=== PATIENT | female | born 1940 ===

== ENCOUNTER 2017-05-26 07:36 | Day surgery (SDC) | payer MEDICARE ==
[2017-05-22 13:05] VITALS: BMI 30.9
--- NOTE | 2017-05-24 04:34 | HP ---
REASON FOR ADMISSION: Left heart cath and possible angioplasty, and unstable angina. BRIEF CLINICAL HISTORY: This is a 76-year-old female with a past medical history significant for hypertension, complaining of dyspnea on exertion and patient feels a knot in the neck while she walks associated with neck pain and shortness of breath, started burping, and after that burping, stopped walking, the patient feels better. Denies any chest pain. PAST MEDICAL HISTORY: Significant for obesity and hypertension. SOCIAL HISTORY: Denies any history of alcohol abuse. Recent cardiac workup as follows; the patient had a stress test dated 02/10/2017. There was a Lexiscan that showed normal myocardial perfusion study. Ejection fraction 81%. The patient had echocardiography done on 07/27/2016 that shows normal LV size, hinhzckt-bx-uiquvm concentric LVH, normal LV function, ejection fraction is within normal limits. Diastolic dysfunction is grade 1. Moderately calcified aortic valve, moderate valvular aortic stenosis, small loculated anterior pericardial effusion noted. CURRENT MEDICATIONS: The patient is taking amlodipine 10 mg a day, Norvasc 1 tablet, hydrochlorothiazide 1 tablet, multivitamin 1 tablet, and Symbicort inhaler. REVIEW OF SYSTEMS: As per HPI. ALLERGIES: NO KNOWN DRUG ALLERGIES. PHYSICAL EXAMINATION: GENERAL: Height of the patient is 5 feet 3 inches, weight of the patient is 175, body mass index is 31.0 kg/m2. HEENT: PERRLA, extraocular muscles intact. NECK: Supple. No carotid bruit. No thyromegaly. CHEST: Clear to auscultation. HEART: S1 and S2 regular. Loud systolic murmur noted. ABDOMEN: Soft. EXTREMITIES: Clubbing and cyanosis negative. IMPRESSION: Unstable angina, hypertension, hyperlipidemia, obesity, and moderate aortic stenosis. RECOMMENDATIONS: We will load with Plavix and Aspirin. Further recommendation after cardiac catheterization; if significant gradient noted, then we can do the right heart catheterization also. We will follow with you. Thank you Dr. Villatoro for the opportunity in taking care of Diamond Gusman. Thank you for providing the opportunity in taking care of patient, Diamond Gusman. Kesha Cespedes MD
[2017-05-26 08:32] LABS: HEMATOCRIT 39.3 % (36.0-48.0); LYMPH # 1.3 (1.2-3.4); LYMPH % 11.5 % (22.0-35.0); MEAN CELL VOLUME 88.5 fl (80.0-105.0); MEAN CORPUSCULAR HEMOGLOBIN 29.7 pg (25.0-35.0); MEAN CORPUSCULAR HGB CONC 33.6 g/dl (31.0-37.0); MEAN PLATELET VOLUME 9.3 fl (7.0-11.0); MONO # 0.8 (0.1-0.6); MONO % 7.5 % (1.0-6.0); RED CELL DISTRIBUTION WIDTH 14.1 % (11.5-14.5); WHITE BLOOD COUNT 11.1 10^3/ul (4.5-11.0)
[2017-05-26 08:43] LABS: INR 0.96 (0.93-1.08); PARTIAL THROMBOPLASTIN TIME 24.7 Seconds (23.7-30.8)
[2017-05-26 09:45] LABS: BLOOD UREA NITROGEN 23 mg/dL (7-21); CALCIUM 8.9 mg/dL (8.4-10.5); CARBON DIOXIDE 28 mmol/L (21-33); CHLORIDE 102 mmol/L (98-107); CHOLESTEROL 118 mg/dL (130-200); GFR AFRICAN-AMERICAN > 60; GLUCOSE,RANDOM 114 mg/dL (70-110); POTASSIUM 3.5 mmol/L (3.6-5.0); SODIUM 141 mmol/L (132-148)
[2017-05-26] MEDS ORDERED: Lidocaine 2% Inj (20ml) ONE (11:19)
[2017-05-26] MEDS ORDERED: Nitroglycerin 50mg in D5W 50 MG/250 ML BOTTLE IV ONE (11:20)
[2017-05-26] MEDS ORDERED: Midazolam 2 MG/2 ML VIAL ONE (11:52)
[2017-05-26] MEDS ORDERED: Bacitracin 500 Units/gm Oint Foilpak UD TOP ONE ×2 (12:35→12:36)
[2017-05-26] MEDS ORDERED: Sodium Chloride 0.9% 1,000 ML IV SCH (12:45)
[2017-05-26 12:52] VITALS: TEMP 97.7
[2017-05-26 14:27] VITALS: RESP 18
[2017-05-26 14:28] VITALS: O2SAT 96
[2017-05-26 14:30] VITALS: BP 135/79; PULSE 69
[2017-05-26] MEDS ORDERED: Bacitracin 500 Units/gm Oint Foilpak UD ONE (14:37)
--- NOTE | 2017-05-26 15:35 | CARD ---
APPROVED REPORT EKG Measurement Heart [id number] NM [id number] [id number] <Conclusion> Normal sinus rhythm Possible Left atrial enlargement Borderline ECG
--- NOTE | 2017-05-26 16:36 | CARD ---
APPROVED REPORT Procedure(s) performed: Left Heart Catheterization HISTORY The patient is a 76 year-old female with a history of : most recent EF: 81%. (EF Method: RADIONUCLIDE), chronic lung disease, hypertension , dyslipidemia , Mild to Moderate by Echo,was C/o chest pain, throat pain and ball in throat on walking 1-2 block associated with SOB, Hx of stress test ( Lexiscan) 3-4 months ago and was negative for ischemia.. INDICATION The indication(s) include : unstable angina , dyspnea, valvular heart disease. CASE TECHNIQUE The patient was brought electively to the Cardiac Catheterization Laboratory in a fasting state and was prepped and draped in a sterile manner. The left wrist was infiltrated with 2% Lidocaine subcutaneous anesthesia. A 6 Fr Glidesheath (Radial) sheath was inserted into the left radial artery without difficulty. Coronary angiography was performed using coronary diagnostic catheters. The left coronary system was accessed and visualized with a Diagnostic ,5 Fr JL 4 catheter. The right coronary system was accessed and visualized with a Diagnostic ,5 Fr JR 4 catheter. The left ventricle was accessed and visualized with a 5 Fr Pigtail 145 (Angled) catheter. Left ventricular/Aortic Valve gradient assessed on pullback. Left ventriculogram was performed in MCKEON projection. Closure device was deployed with a Fr TR Band (Large) without any complications. The patient tolerated the procedure well and there were no complications associated with the procedure. Vessel Analysis The patient's coronary anatomy is right dominant. The left main coronary artery is a large size vessel with diffuse calcification noted throughout this vessel and without significant stenosis. There is a 10-20% stenosis in the distal segment. The left main bifurcates to the left anterior descending and circumflex. The left anterior descending artery is a medium size vessel with diffuse calcification noted throughout this vessel and without significant stenosis. There is a 55% stenosis in the very distal segment , diffusely diseased but no focal flow limiting stenosis.. The first diagonal branch is a medium size vessel with diffuse calcification noted throughout this vessel and without significant stenosis. The circumflex artery is a large size vessel with diffuse calcification noted throughout this vessel and without significant stenosis. The first obtuse marginal branch is a large size vessel with diffuse calcification noted throughout this vessel and without significant stenosis. The right coronary artery is a large size vessel with diffuse calcification noted throughout this vessel and without significant stenosis. The right posterior descending artery is a large size vessel with intimal irregularities and without significant stenosis. fistulous communication noted from PLv Br of RCA to LV cavity ( hemodynamically not significant). Left Ventricle The left ventricle is normal in size with normal contractility. There was no cardiomyopathy. The left ventricular ejection fraction is estimated to be 60-65%. The left ventricular end diastolic pressure is 15 mmHg. at the most 10-12 mm gradient noted across aortic valve ( C/W mild ) Conclusion Non Obstructive CAD, limited to very distal LAD 55% diffusely diseased, non focal non flow limiting stenosis. Preserved LV Fx. Ef-60-65%, EDP15 mmof Hg with respiratory variation. Mild peak to peak on Pull back 10-12 mm gradient across aortic Valve. Coronary Fistula Noted communicating PLV Br of RCA to LV cavity. Recommendations Aggressive Medical TherapyCardiac Risk Reduction Program Weight Loss Reduction Program Cc; Dr. Villatoro
== END 2017-05-26 16:00 | disposition home or self-care (01) ==
LOC: CATH 07:36
PROVIDERS: ATTEND Internal Medicine Cardiovascular Disease
DX: I25.110 Atherosclerotic heart disease of native coronary artery with unstable angina pectoris (principal); I10 Essential (primary) hypertension; E78.5 Hyperlipidemia, unspecified; R06.09 Other forms of dyspnea; M54.2 Cervicalgia; E66.9 Obesity, unspecified; Z68.31 Body mass index [BMI] 31.0-31.9, adult; I35.0 Nonrheumatic aortic (valve) stenosis; I31.3 Pericardial effusion (noninflammatory); J44.9 Chronic obstructive pulmonary disease, unspecified; R06.00 Dyspnea, unspecified; I25.41 Coronary artery aneurysm
CPT/HCPCS: 36415; 80048; 80061; 85025; 85610; 85730; 86850; 86900; 93005; 93458; 99152; C1769; C1887 ×2; J1644 ×2; J2250; J3010; J7040 ×2; Q9967

== ENCOUNTER 2017-06-12 19:05 | Observation (INO) | payer MEDICARE ==
[2017-06-12] MEDS ORDERED: Sodium Chloride 0.9% 500 ML IV STA (19:28)
--- NOTE | 2017-06-12 19:30 | ED PDOC ---
Arrival/HPI - General Time Seen by Provider: 06/12/17 19:08 - History of Present Illness Narrative History of Present Illness (Text): 06/12/17 19:29 76 yo female, hx of cad, gastric sleeve. presnts wtih chest pain/dysphgia/ throat pain x 1 week. pt staets she has symptoms over last week. no fevers, mild chest heaviness. pt feels "something stuck in her throat" recent cath with distal lad disease, treated medically. no abdominal pain, no diarrhea. Past Medical History - Provider Review Nursing Documentation Reviewed: Yes - Infectious Disease Hx of Infectious Diseases: None - Tetanus Immunization Tetanus Immunization: Unknown - Cardiac Hx Pacemaker: No - Neurological Hx Paralysis: No - Hematological/Oncological Hx Blood Transfusions: No - Musculoskeletal/Rheumatological Hx Musculoskeletal Disorders: Yes - Gastrointestinal Hx Gastrointestinal Disorders: (dumping syndrome) - Psychiatric Hx Substance Use: No - Surgical History Hx Appendectomy: Yes Hx Cholecystectomy: Yes Hx Hysterectomy: Yes Other/Comment: right breast bx benign - Anesthesia Hx Anesthesia Reactions: No Hx Malignant Hyperthermia: No - Suicidal Assessment Feels Threatened In Home Enviroment: No Family/Social History - Physician Review Nursing Documentation Reviewed: Yes Family/Social History: Unknown Family HX Smoking Status: Former Smoker Hx Alcohol Use: No Hx Substance Use: No Hx Substance Use Treatment: No Allergies/Home Meds Allergies/Adverse Reactions: Allergies NSAIDS (Non-Steroidal Anti-Inflamma Allergy (Verified 06/12/17 19:21) NAUSEA Home Medications: Home Meds Medication Instructions Recorded Confirmed Valsartan/Hydrochlorothiazide 1 tab PO DAILY 02/10/17 06/12/17 [Valsartan-Hctz 160-12.5 mg Tab] Budesonide/Formoterol Fumarate 1 aer IH PRN PRN 05/22/17 06/12/17 [Symbicort 160-4.5 Mcg Inhaler] Multivit-Min/FA/Lycopen/Lutein 1 tab PO DAILY 05/22/17 06/12/17 [Centrum Silver Tablet] Colchicine [Colcrys] 1 tab PO DAILY 05/26/17 06/12/17 Review of Systems - Review of Systems Constitutional: Normal Eyes: Normal ENT: Sore Throat Respiratory: Normal Cardiovascular: Chest Pain Gastrointestinal: Normal Genitourinary Female: Normal Musculoskeletal: Normal Skin: Normal Neurological: Normal Endocrine: Normal Hemo/Lymphatic: Normal Psychiatric: Normal Physical Exam Vital Signs Temp Pulse Resp BP Pulse Ox 06/12/17 21:41 97.8 F 90 22 141/78 96 06/12/17 19:10 97.7 F 101 H 20 141/76 97 Temperature: Afebrile Blood Pressure: Normal Pulse: Tachycardic (mild) Respiratory Rate: Normal Appearance: Positive for: Well-Appearing, Non-Toxic, Comfortable Pain Distress: None Mental Status: Positive for: Alert and Oriented X 3 - Systems Exam Head: Present: Atraumatic, Normocephalic Pupils: Present: PERRL Extroacular Muscles: Present: EOMI Conjunctiva: Present: Normal Mouth: Present: Moist Mucous Membranes Neck: Present: Normal Range of Motion Respiratory/Chest: Present: Clear to Auscultation, Good Air Exchange. No: Respiratory Distress, Accessory Muscle Use Cardiovascular: Present: Regular Rate and Rhythm, Normal S1, S2. No: Murmurs Abdomen: Present: Normal Bowel Sounds. No: Tenderness, Distention, Peritoneal Signs, Rebound, Guarding Back: Present: Normal Inspection Upper Extremity: Present: Normal Inspection. No: Cyanosis, Edema Lower Extremity: Present: Normal Inspection. No: Edema Neurological: Present: GCS=15, CN II-XII Intact, Speech Normal Skin: Present: Warm, Dry, Normal Color. No: Rashes Psychiatric: Present: Alert, Oriented x 3, Normal Insight, Normal Concentration Medical Decision Making ED Course and Treatment: 06/13/17 01:50 atypical chest pain/dsyphatia. r/o cardiac etiology, gastritis, gerd. labs imaging pending case discussed with dr felix singletary. will obs for gi and cards eval. - Lab Interpretations Lab Results: 06/12/17 19:30 06/12/17 19:30 Lab Results 06/12/17 20:15: Urine Color Yellow, Urine Appearance Sl cloudy, Urine pH 6.5, Ur Specific [place] <= 1.005, Urine Protein Negative, Urine Glucose (UA) Negative, Urine Ketones Negative, Urine Blood Small H, Urine Nitrate Negative, Urine Bilirubin Negative, Urine Urobilinogen 0.2, Ur Leukocyte Esterase Negative , Urine RBC 0 - 2, Urine WBC Negative 06/12/17 19:30: Sodium 138, Potassium 3.5 L, Chloride 102, Carbon Dioxide 26, Anion Gap 14, BUN 16, Creatinine 1.0, Est GFR ( Amer) > 60, Est GFR (Non- Af Amer) 54, Random Glucose 116 H, Calcium 8.8, Magnesium 1.8, Total Bilirubin 0.4, AST 30, ALT 26, Alkaline Phosphatase 105, Lactate Dehydrogenase 673, Total Creatine Kinase 123, Troponin I < 0.01, Total Protein 6.8, Albumin 3.8, Globulin 3.0, Albumin/Globulin Ratio 1.3, Lipase 82 06/12/17 19:30: PT 10.1, INR 0.94, APTT 27.5 06/12/17 19:30: WBC 4.6 D, RBC 3.97, Hgb 12.0, Hct 35.7 L, MCV 89.9, MCH 30.2, MCHC 33.6, RDW 14.4, Plt Count 238, MPV 8.9, Gran % 44.7 L, Lymph % (Auto) 37.6 H, [place] % (Auto) 12.0 H, Eos % (Auto) 5.5 H, Baso % (Auto) 0.2, Gran # 2.04, Lymph # 1.7, [place] # 0.6, Eos # 0.3, Baso # 0.01 - RAD Interpretation Radiology Orders: 06/12/17 19:27 CHEST PORTABLE [RAD] Stat 06/12/17 19:28 NECK & CHEST W/O CONTRAST [CT] Stat - Medication Orders Current Medication Orders: Discontinued Medications Al Hydrox/Mg Hydrox/Simethicone (Maalox Plus 30 Ml) 30 ml PO STAT STA Stop: 06/12/17 20:21 Last Admin: 06/12/17 20:33 Dose: 30 ml Barium Sulfate (E-Z-Paque) Confirm Administered Dose 176 g [place] .STK-MED ONE Stop: 06/13/17 11:49 Hydrochlorothiazide (Microzide) 12.5 mg PO DAILY HAMIDA Last Admin: 06/13/17 09:36 Dose: 12.5 mg Sodium Chloride (Sodium Chloride 0.9%) 500 mls @ 999 mls/hr IV .Q31M STA Stop: 06/12/17 19:58 Last Admin: 06/12/17 19:33 Dose: 999 mls/hr Losartan Potassium (Cozaar) 100 mg PO DAILY HAMIDA Last Admin: 06/13/17 09:36 Dose: 100 mg Ondansetron HCl (Zofran Inj) 4 mg IVP STAT STA Stop: 06/12/17 19:29 Last Admin: 06/12/17 19:34 Dose: 4 mg Ondansetron HCl (Zofran Inj) Confirm Administered Dose 4 mg .ROUTE .STK-MED ONE Stop: 06/12/17 19:33 Last Admin: 06/12/17 19:37 Dose: Ondansetron HCl (Zofran Inj) 4 mg IM Q6 PRN PRN Reason: Nausea/Vomiting Pantoprazole Sodium (Protonix Inj) 40 mg IVP STAT STA Stop: 06/12/17 19:29 Last Admin: 06/12/17 19:37 Dose: 40 mg Pantoprazole Sodium (Protonix Inj) 40 mg IVP DAILY HAMIDA Last Admin: 06/13/17 09:37 Dose: 40 mg Potassium Chloride (K-Dur 20 Meq Er Tab) 20 meq PO STAT STA Stop: 06/12/17 23:04 Last Admin: 06/13/17 00:09 Dose: 20 meq Potassium Chloride (K-Dur 20 Meq Er Tab) 20 meq PO ONCE ONE Stop: 06/13/17 08:31 Last Admin: 06/13/17 18:23 Dose: 20 meq Potassium Chloride (K-Dur 20 Meq Er Tab) 40 meq PO ONCE ONE Stop: 06/13/17 08:31 Last Admin: 06/13/17 09:36 Dose: 40 meq Disposition/Present on Arrival - Present on Arrival Any Indicators Present on Arrival: No History of DVT/PE: No History of Uncontrolled Diabetes: No Urinary Catheter: No History Surgical Site Infection Following: None - Disposition Have Diagnosis and Disposition been Completed?: Yes Diagnosis: Chest pain, Dysphagia Disposition: HOSPITALIZED Disposition Time: 11:00 Condition: STABLE
[2017-06-12 19:42] LABS: BASO # 0.01 K/mm3 (0.0-2.0); BASO % 0.2 % (0.0-3.0); EOS # 0.3 (0.0-0.7); EOS % 5.5 % (1.5-5.0); GRAN # 2.04 (1.4-6.5); GRAN % 44.7 % (50.0-68.0); HEMATOCRIT 35.7 % (36.0-48.0); LYMPH # 1.7 (1.2-3.4); LYMPH % 37.6 % (22.0-35.0); MEAN CELL VOLUME 89.9 fl (80.0-105.0); MEAN CORPUSCULAR HEMOGLOBIN 30.2 pg (25.0-35.0); MEAN CORPUSCULAR HGB CONC 33.6 g/dl (31.0-37.0); MEAN PLATELET VOLUME 8.9 fl (7.0-11.0); MONO # 0.6 (0.1-0.6); RED CELL DISTRIBUTION WIDTH 14.4 % (11.5-14.5); WHITE BLOOD COUNT 4.6 10^3/ul (4.5-11.0)
[2017-06-12 19:52] LABS: ALB/GLOB RATIO 1.3 (1.1-1.8); ALKALINE PHOSPHATASE 105 U/L (38-126); ALT/SGPT 26 U/L (7-56); AST/SGOT 30 U/L (14-36); BILIRUBIN,TOTAL 0.4 mg/dL (0.2-1.3); BLOOD UREA NITROGEN 16 mg/dL (7-21); CALCIUM 8.8 mg/dL (8.4-10.5); CARBON DIOXIDE 26 mmol/L (21-33); CHLORIDE 102 mmol/L (98-107); GFR AFRICAN-AMERICAN > 60; GLUCOSE,RANDOM 116 mg/dL (70-110); LIPASE 82 U/L (23-300); MAGNESIUM 1.8 mg/dL (1.7-2.2); POTASSIUM 3.5 mmol/L (3.6-5.0); SODIUM 138 mmol/L (132-148); TOTAL PROTEIN 6.8 g/dL (5.8-8.3)
[2017-06-12 19:53] LABS: INR 0.94 (0.93-1.08); PARTIAL THROMBOPLASTIN TIME 27.5 Seconds (23.7-30.8)
[2017-06-12 20:08] LABS: TROPONIN I < 0.01 ng/mL
[2017-06-12] MEDS ORDERED: Alum-Mag Hydrox-Simethicone Susp (30 mL) PO STA (20:20)
[2017-06-12 20:31] LABS: PH,URINE 6.5 (4.7-8.0); URINE BILIRUBIN NEGATIVE (NEGATIVE); URINE BLOOD SMALL (NEGATIVE); URINE GLUCOSE (UA) NEGATIVE (NEGATIVE); URINE KETONE NEGATIVE (NEGATIVE); URINE LEUKOCYTE ESTERASE NEGATIVE Leu/uL (NEGATIVE); URINE PROTEIN NEGATIVE mg/dL (<30 mg/dL); URINE UROBILINOGEN 0.2 E.U./dL (<1 E.U./dL)
[2017-06-12 20:32] LABS: URINE APPEARANCE SL CLOUDY (CLEAR); URINE COLOR YELLOW (YELLOW)
[2017-06-12 20:39] LABS: URINE RBC 0 - 2 /hpf (0-2); URINE WBC NEGATIVE /hpf (0-6)
--- NOTE | 2017-06-12 20:58 | CT ---
EXAM: CT Neck Without Intravenous Contrast CLINICAL HISTORY: 76 years old, female; Signs and symptoms; Other: Burping for one week; Dysphagia / difficulty swallowing TECHNIQUE: Axial computed tomography images of the neck without intravenous contrast. All CT scans at this facility use one or more dose reduction techniques, viz.: automated exposure control; ma/kV adjustment per patient size (including targeted exams where dose is matched to indication; i.e. head); or iterative reconstruction technique. Coronal and sagittal reformatted images were created and reviewed. COMPARISON: No relevant prior studies available. FINDINGS: Artifacts: There is streak artifact from earrings Brain: No focal abnormalities are seen in visualized portion of the brain. Submandibular/parotid glands: Parotid and submandibular glands are unremarkable. Thyroid: Thyroid is heterogeneous. Bones/joints: There degenerative changes in the cervical spine. Airway is unremarkable. There is no retropharyngeal soft tissue swelling. Vasculature: There are vascular calcifications. Lymph nodes: There is no pathologic cervical adenopathy. Adenoids are unremarkable. There is mild prominence tonsils. Sinuses: There is no acute sinusitis. Middle ears and mastoids: Middle ears and mastoids are unremarkable. Dental: Streak artifact from dental fillings degrades image quality. Esophagus: Cervical esophagus is unremarkable. Lung apices: Lung apices are clear Other findings: Parapharyngeal spaces are symmetric. IMPRESSION: Mild prominence of the tonsils, no airway obstruction EXAM: CT Chest Without Intravenous Contrast EXAM DATE/TIME: 06/12/2017 7:28 PM CLINICAL HISTORY: 76 years old, female; Signs and symptoms; Other: Burping for one week; Dysphagia / difficulty swallowing TECHNIQUE: Axial computed tomography images of the chest without intravenous contrast. All CT scans at this facility use one or more dose reduction techniques, viz.: automated exposure control; ma/kV adjustment per patient size (including targeted exams where dose is matched to indication; i.e. head); or iterative reconstruction technique. Coronal and sagittal reformatted images were created and reviewed. COMPARISON: CT - CHEST W/O CONTRAST 05/28/2016 8:48:41 AM FINDINGS: Lungs and pleural spaces: Trachea and main bronchi are patent. Motion limits evaluation of the lungs. The lungs are well-inflated. There is scarring in the middle lobe similar to that seen on the prior study. There is atelectasis and scarring at both lung bases in the lower lobes and lingula. There are no effusions. Heart: The heart is mildly enlarged.There is calcification of the mitral annulus.There is trace fluid in pericardial recesses. Aorta is normal in caliber. There is prominence of the main pulmonary artery and right and left pulmonary arteries. There are vascular calcifications. Mediastinum: The esophagus is unremarkable. There are mildly prominent mediastinal nodes.Myriam are not optimally evaluated without contrast material. Thyroid: Thyroid is prominent and diffusely heterogeneous. Bones/joints: Bony structures are osteopenic.There are degenerative changes in the osseus structures. Soft tissues: unremarkable Upper abdomen: There are no acute abnormalities in the visualized portion of the abdomen.The gallbladder is absent. Common duct is mildly dilated. Pancreas is atrophic. 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
[2017-06-12 21:46] VITALS: O2SAT 96
[2017-06-13] MEDS: Potassium Chloride 20 mEq ER Tab PO STA ×2 (00:09→18:20)
[2017-06-13 05:57] VITALS: BMI 27.3
--- NOTE | 2017-06-13 08:19 | RAD ---
HISTORY: Chest pain COMPARISON: 11/24/2014. FINDINGS: LUNGS: No active pulmonary disease. PLEURA: No significant pleural effusion identified, no pneumothorax apparent. CARDIOVASCULAR: No radiographic findings to suggest acute or significant cardiovascular disease. OSSEOUS STRUCTURES: No significant abnormalities. VISUALIZED UPPER ABDOMEN: Normal. OTHER FINDINGS: None. IMPRESSION: No active disease.
[2017-06-13] MEDS ORDERED: Potassium Chloride 20 mEq ER Tab PO ONE ×2 (08:30)
[2017-06-13 09:28] LABS: BLOOD UREA NITROGEN 13 mg/dL (7-21); CALCIUM 8.7 mg/dL (8.4-10.5); CARBON DIOXIDE 30 mmol/L (21-33); CHLORIDE 103 mmol/L (98-107); CHOLESTEROL 133 mg/dL (130-200); GFR AFRICAN-AMERICAN > 60; GLUCOSE,RANDOM 112 mg/dL (70-110); POTASSIUM 3.8 mmol/L (3.6-5.0); SODIUM 142 mmol/L (132-148)
[2017-06-13] MEDS ORDERED: Non Formulary Medication (Valsartan/Hydrochlorothiazide [Valsartan-Hctz 160-12.5 Mg Tab] 1 PO SCH (10:00)
--- NOTE | 2017-06-13 10:32 | CON ---
DATE: 06/13/2017 CONSULT SERVICE CARDIOLOGY PHYSICIAN: Kesha Cespedes MD REASON FOR CONSULTATION: Followup neck pain, shortness of breath, feels something is struck in throat, questionable history of chest pain. BRIEF CLINICAL HISTORY: This is a 76-year-old female with past medical history significant for hypertension, complaining of dyspnea on exertion and feeling knot in the neck and something struck in the throat. The patient has a recently cardiac catheterization on 05/26/2017 that showed nonobstructive coronary artery disease, limited to distal LAD diffuse disease, no focal stenosis, preserved LV function, ejection fraction 65%, mild aortic stenosis. PAST MEDICAL HISTORY: Significant for obesity and hypertension. SOCIAL HISTORY: Denies any history of alcohol abuse. Denies any history of tobacco abuse. RECENT CARDIAC WORKUP: As follows: The patient had a cardiac catheterization on 05/26/2017 because of dyspnea on exertion, chest pain on exertion that revealed nonobstructive coronary artery disease, limited only to very distal LAD diffusely disease, nonfocal, no flow-limiting stenosis, preserved LV function, ejection fraction 60% to 65%, EDP was in the range of 15 mmHg with respiratory variation, mild aortic stenosis, upof-yg-boxf gradient on pullback is 10-12 mmHg consistent with mild aortic stenosis, coronary communicating PLV branch of RCA to LV cavity. Medical treatment recommended, dated 05/26/2017. At that time, reports of the detailed cardiac catheterization as follows: Left main 10% to 20% stenosis bifurcating LAD and circumflex. LAD has a very distal diffuse disease, 55% stenosis, very distal near the apex, but no focal flow-limiting stenosis. Circumflex showed some luminal irregularity, but no flow obstructive stenosis noted. Right coronary artery, large-sized vessel, no flow-limiting stenosis noted. Prior to that, patient had a stress test on 02/10/2017. Lexiscan showed normal myocardial perfusion study, ejection fraction 81%. The patient had echocardiography done on 07/27/2016 that shows normal LV function, [id number] concentric LVH, diastolic dysfunction grade 1, moderately calcified aortic valve, reported moderate aortic stenosis. By cath, there is mild aortic stenosis, glnk-ip-zsmr gradient on pullback is 10-12 consistent with mild aortic stenosis by cath. CURRENT MEDICATIONS: The patient is taking at home multivitamin, Symbicort, valsartan, hydrochlorothiazide and colchicine. REVIEW OF SYSTEMS: As per HPI. PHYSICAL EXAMINATION: As follows: GENERAL: Height of the patient is 5 feet 3 inches, weight of the patient 154 pounds, body mass index is 27.3 kg/m2. Rest of examination as follows: VITAL SIGNS: Temperature afebrile, heart rate 88, blood pressure 122/79. HEENT: PERRLA. Extraocular muscles intact. NECK: Supple. No carotid bruit. No thyromegaly. CHEST: Clear to auscultation. HEART: S1 and S2 regular. ABDOMEN: Soft. EXTREMITIES: Clubbing and cyanosis negative. LABORATORY DATA: Blood workup as follows: WBC 4.6, hemoglobin 12, hematocrit 35.7, and platelet count 238. Chemistry shows sodium 130, potassium 3.5, chloride 102, carbon dioxide 26, anion gap of 15, BUN 16, creatinine 1.0. Troponin is 0.01. IMPRESSION: Atypical chest pain, no evidence of acute myocardial infarction, history of recent cardiac catheterization on 05/26/2017, two weeks from now, that revealed distal left anterior descending diffuse disease, 55% stenosis, no focal limiting stenosis, mild aortic stenosis, obesity, diabetes, hypertension and hyperlipidemia. RECOMMENDATIONS: We will discontinue telemetry. Resume previous medication. Consider GI workup. We will supplement potassium. The patient is cleared from cardiology point of view to go for endoscopy if needed and we will discontinue telemetry. No further cardiac workup is planned or warranted. Thank you Dr. Villatoro for providing me the opportunity in taking care of Diamond Gusman. Kesha Cespedes MD
[2017-06-13] MEDS ORDERED: Barium Sulfate for Susp 96% w/w 176g Bottle PR ONE (11:48)
--- NOTE | 2017-06-13 12:17 | RAD ---
HISTORY: Dysphagia. COMPARISON: None. TECHNIQUE: Single contrast esophagram was performed. FINDINGS: Patient tolerated procedure well. ESOPHAGUS: Esophageal mucosa appeared preserved. No evidence of stricture or mass lesion. HIATAL HERNIA: None demonstrated. GASTROESOPHAGEAL REFLUX: Not demonstrated. OTHER FINDINGS: None. IMPRESSION: Unremarkable esophagram.
[2017-06-13 17:41] VITALS: BP 153/85; PULSE 101; RESP 21; TEMP 97.6
--- NOTE | 2017-06-13 21:01 | CARD ---
APPROVED REPORT EKG Measurement Heart [id number] <Conclusion> Sinus tachycardia Cannot rule out Anterior infarct, age undetermined Abnormal ECG
--- NOTE | 2017-06-13 23:59 | CP.PCM.CON ---
Past Patient History - Infectious Disease Hx of Infectious Diseases: None - Tetanus Immunizations Tetanus Immunization: Unknown - Past Social History Smoking Status: Former Smoker - CARDIAC Hx Pacemaker: No - PULMONARY Hx Respiratory Disorders: No - NEUROLOGICAL Hx Paralysis: No - HEENT Hx HEENT Problems: No - RENAL Hx Chronic Kidney Disease: No - ENDOCRINE/METABOLIC Hx Endocrine Disorders: No - HEMATOLOGICAL/ONCOLOGICAL Hx Blood Transfusions: No - INTEGUMENTARY Hx Dermatological Problems: No - MUSCULOSKELETAL/RHEUMATOLOGICAL Hx Musculoskeletal Disorders: Yes - GASTROINTESTINAL Hx Gastrointestinal Disorders: (dumping syndrome) - GENITOURINARY/GYNECOLOGICAL Hx Genitourinary Disorders: No - PSYCHIATRIC Hx Substance Use: No - SURGICAL HISTORY Hx Appendectomy: Yes Hx Cholecystectomy: Yes Hx Hysterectomy: Yes Other/Comment: right breast bx benign - ANESTHESIA Hx Anesthesia Reactions: No Hx Malignant Hyperthermia: No Meds Allergies/Adverse Reactions: Allergies Allergy/AdvReac Type Severity Reaction Status Date / Time NSAIDS (Non-Steroidal Allergy NAUSEA Verified 06/12/17 19:21 Anti-Inflamma Results - Vital Signs Recent Vital Signs: Last Vital Signs Temp 97.6 F 06/13/17 17:40 Pulse 101 H 06/13/17 17:40 Resp 21 06/13/17 17:40 BP 153/85 H 06/13/17 17:40 Pulse Ox 96 06/12/17 21:41 - Labs Result Diagrams: 06/12/17 19:30 06/13/17 09:00 Labs: Laboratory Results - last 24 hr 06/13/17 06/13/17 06/13/17 09:00 09:00 09:00 Sodium 142 Potassium 3.8 Chloride 103 Carbon Dioxide 30 Anion Gap 13 BUN 13 Creatinine 1.0 Est GFR ( Amer) > 60 Est GFR (Non-Af Amer) 54 Random Glucose 112 H Hemoglobin A1c 5.7 Calcium 8.7 Triglycerides 191 H Cholesterol 133 LDL Cholesterol Direct < 30 HDL Cholesterol 46 TSH 3rd Generation 0.62 Assessment & Plan - Assessment and Plan (Free Text) Assessment: p
== END 2017-06-13 21:37 | disposition home or self-care (01) ==
LOC: ED 19:05 → ERH 22:15 → 2RNO 23:38
PROVIDERS: ADMIT Internal Medicine; ATTEND Internal Medicine
DX: R07.89 Other chest pain (principal); R13.10 Dysphagia, unspecified; I25.10 Atherosclerotic heart disease of native coronary artery without angina pectoris; I10 Essential (primary) hypertension; R06.09 Other forms of dyspnea; I35.0 Nonrheumatic aortic (valve) stenosis; E78.5 Hyperlipidemia, unspecified; E66.9 Obesity, unspecified; Z68.31 Body mass index [BMI] 31.0-31.9, adult; Z79.51 Long term (current) use of inhaled steroids; Z90.710 Acquired absence of both cervix and uterus; Z90.49 Acquired absence of other specified parts of digestive tract; Z87.891 Personal history of nicotine dependence
CPT/HCPCS: 36415; 70490; 71010; 71250; 74220; 80048; 80053; 80061; 81001; 82550; 83036; 83615; 83690; 83735; 84443; 84484; 85025; 85610; 85730; 93005; 96374; 96375; 96376; 99285; C9113; G0378; J2405; J7040

== ENCOUNTER 2017-09-19 08:39 | Day surgery (SDC) | payer MEDICARE ==
[2017-09-12 11:09] VITALS: BMI 30.9
[2017-09-19] MEDS ORDERED: Propofol 10 mg/ml Inj (20 ML) ONE (11:27)
[2017-09-19] MEDS ORDERED: Sodium Chloride 0.9% 1,000 ML IV SCH (11:30)
[2017-09-19] MEDS ORDERED: Lidocaine 1% Inj (20ml) ONE (11:34)
[2017-09-19 12:00] VITALS: RESP 14; TEMP 98
[2017-09-19 12:22] VITALS: O2SAT 97
[2017-09-19 14:00] VITALS: BP 130/80; PULSE 80
== END 2017-09-19 14:00 | disposition home or self-care (01) ==
LOC: ENDO 08:39
PROVIDERS: ATTEND Internal Medicine Gastroenterology
DX: K28.9 Gastrojejunal ulcer, unspecified as acute or chronic, without hemorrhage or perforation (principal); K30 Functional dyspepsia; Z90.3 Acquired absence of stomach [part of]
CPT/HCPCS: 43239; 88305; 88342; J2704; J3010; J7040 ×2